=== PATIENT | male | born 1995 | race Caucasian/White ===

== ENCOUNTER 2017-07-13 11:42 | Emergency (ER) | payer OTHER, BC ==
[2017-07-13] MEDS ORDERED: Lidocaine 1% with EPINEPHrine 1:100,000 20 ML MDV INJECT ONE (12:24)
--- NOTE | 2017-07-13 12:26 | EDM.PDOC ---
ED HPI GENERAL MEDICAL PROBLEM - General Chief Complaint: Laceration Stated Complaint: LT WRIST LAC Time Seen by Provider: 07/13/17 11:56 Source of Information: Reports: Patient History Limitations: Reports: No Limitations - History of Present Illness INITIAL COMMENTS - FREE TEXT/NARRATIVE: 21 y/o M s/p injury at work. Was removing a transmission and it fell on his left wrist. Has a laceration there. Denies pain. No numbness/tingling/weakness. Denies additional injury. Mild bleeding. - Related Data Allergies Allergy/AdvReac Type Severity Reaction Status Date / Time Penicillins Allergy Rash Verified 07/13/17 11:53 Home Meds: Home Meds Albuterol Sulfate [Proair Hfa] 2 puff IH Q4H PRN 07/13/17 [History] Past Medical History - Past Health History Medical/Surgical History: Denies Medical/Surgical History Social & Family History - Tobacco Use Smoking Status *Q: Current Every Day Smoker Years of Tobacco use: 4 Packs/Tins Daily: 0.5 - Caffeine Use Caffeine Use: Reports: Coffee, Energy Drinks, Soda, Tea - Recreational Drug Use Recreational Drug Use: No ED ROS GENERAL - Review of Systems Review Of Systems: See Below Constitutional: Reports: No Symptoms Musculoskeletal: Denies: Arm Pain Skin: Reports: Wound Neurological: Denies: Paresthesia ED EXAM, SKIN/RASH Exam: See Below Exam Limited By: No Limitations General Appearance: Alert, WD/WN, No Apparent Distress Eye Exam: Bilateral Eye: Normal Inspection Head: Atraumatic, Normocephalic Neck: Normal Inspection, Supple Respiratory/Chest: No Respiratory Distress Cardiovascular: Normal Peripheral Pulses Peripheral Pulses: 2+: Radial (L) Extremities: Other (LUE: no deformity or bony TTP. Approx 2 cm laceration to palmar surface of L wrist, subcutaneous, no FB, no bleeding, distal motor/ sensation intact. +superficial very small (less than 0.5 cm) laceration to palmar suface of distal left ring finger, minimal bleeding) ED SKIN PROCEDURES - Laceration/Wound Repair Left Ventral Wrist Lac/Wound length In cm: 1.5 Appearance: Subcutaneous, Clean Distal NVT: Neuro & Vascular Intact Anesthetic Type: Local Local Anesthesia - Lidocaine (Xylocaine): 1% with EPI Local Anesthetic Volume: 2cc Skin Prep: Chlorhexidine (Hibiciens) Exploration/Debridement/Repair: Wound Explored, In a Bloodless Field, Explored to Base, No Foreign Material Found Closed with: Sutures Suture Size: 4-0 # of Sutures: 3 Suture Type: Nylon, Interrupted, Simple Sterile Dressing Applied: Nurse Tetanus Status Addressed: Yes Complications: No Course - Vital Signs Last Recorded V/S: Last Vital Signs Temp 36.4 C 07/13/17 11:51 Pulse 84 07/13/17 11:51 Resp 16 07/13/17 11:51 BP 154/94 H 07/13/17 11:51 Pulse Ox 99 07/13/17 11:51 - Orders/Labs/Meds Meds: Medications Discontinued Medications Generic Name Dose Route Start Last Admin Trade Name Freq PRN Reason Stop Dose Admin Lidocaine/Epinephrine 20 ml 07/13/17 12:24 07/13/17 12:32 Xylocaine 1% With Epinephrine 1:100,000 INJECT 07/13/17 12:25 20 ml ONETIME ONE Administration Departure - Departure Time of Disposition: 13:00 Disposition: Home, Self-Care 01 Clinical Impression: Laceration of wrist without complication Qualifiers: Encounter type: initial encounter Laterality: right Qualified Code(s): S61.511A - Laceration without foreign body of right wrist, initial encounter - Discharge Information Instructions: Laceration Care, Adult Referrals: PCP,None [Primary Care Provider] - Forms: ED Department Discharge Additional Instructions: 1. Keep wound clean and dry 2. Starting tomorrow, ok to wash gently. After washing, apply antibiotic ointment and cover wound until healed 3. Suture should be removed in 10-14 days, either by your primary doctor or walk in clinic 4. Return to the ED for a recheck if you have worsening pain, swelling, redness , or pus under the wound
== END 2017-07-13 13:00 | disposition home or self-care (01) ==
LOC: JD.ED 11:42
DX: S61.512A Laceration without foreign body of left wrist, initial encounter (principal); Z88.0 Allergy status to penicillin; W19.XXXA Unspecified fall, initial encounter
CPT/HCPCS: 12001; 99282-25; 99283-25

== ENCOUNTER 2020-09-09 10:58 | Emergency (ER) | payer OTHER, BC ==
[2020-09-09] MEDS ORDERED: Lidocaine 1% 10 ML MDV INJECT ONE (11:24)
--- NOTE | 2020-09-09 11:29 | EDM.PDOC ---
ED HPI GENERAL MEDICAL PROBLEM - General Chief Complaint: Laceration Stated Complaint: LEFT THUMB LAC Time Seen by Provider: 09/09/20 11:09 Source of Information: Reports: Patient History Limitations: Reports: No Limitations - History of Present Illness INITIAL COMMENTS - FREE TEXT/NARRATIVE: 24-year-old male presents to the emergency department complaints of laceration to his left thumb. Just prior to arrival the patient states he was working on a car repairing a bumper and it fell on his hand. He states there is a sharp edge on the bottom of the bumper that caught his thumb. He has a 1 cm laceration noted to the dorsal aspect of his proximal phalanx on his right thumb. States that his tetanus is up to date. - Related Data Allergies Allergy/AdvReac Type Severity Reaction Status Date / Time Penicillins Allergy Rash Verified 09/09/20 11:15 Home Meds: Home Meds Albuterol Sulfate [Proair Hfa] 2 puff IH Q4H PRN 07/13/17 [History] Loratadine [Claritin] 10 mg PO DAILY 09/09/20 [History] Melatonin 5 mg PO DAILYBH PRN 09/09/20 [History] Multivitamin 1 each PO DAILY 09/09/20 [History] Past Medical History - Past Health History Medical/Surgical History: Denies Medical/Surgical History - Infectious Disease History Infectious Disease History: Reports: Chicken Pox, Influenza - Past Surgical History HEENT Surgical History: Reports: Oral Surgery Social & Family History - Tobacco Use Tobacco Use Status *Q: Current Every Day Tobacco User Years of Tobacco use: 10 Packs/Tins Daily: 0.2 - Caffeine Use Caffeine Use: Reports: Coffee, Energy Drinks, Soda, Tea - Recreational Drug Use Recreational Drug Use: Yes Drug Use in Last 12 Months: No Recreational Drug Type: Reports: Marijuana/Hashish Recreational Drug Use Frequency: Not Used In Over 6 Months ED ROS GENERAL - Review of Systems Review Of Systems: Comprehensive ROS is negative, except as noted in HPI. ED EXAM, SKIN/RASH Exam: See Below Exam Limited By: No Limitations General Appearance: Alert, WD/WN, No Apparent Distress Ears: Normal External Exam, Hearing Grossly Normal Nose: Normal Inspection Throat/Mouth: Normal Inspection, Normal Lips, Normal Voice, No Airway Compromise Head: Atraumatic Neck: Normal Inspection Respiratory/Chest: No Respiratory Distress, No Accessory Muscle Use Cardiovascular: Normal Peripheral Pulses, Regular Rate, Rhythm Peripheral Pulses: 2+: Radial (L), Radial (R) GI/Abdominal: No Distention (Male) Exam: Deferred Rectal (Males) Exam: Deferred Back Exam: Normal Inspection Extremities: Normal Inspection Neurological: Alert, Oriented, Normal Cognition Psychiatric: Normal Affect, Normal Mood Skin: Warm, Dry, Intact, Normal Color, No Rash, Wound/Incision (1 cm laceration noted to dorsal aspect of the left thumb on the distal phalanx; bleeding is controlled) Location, Skin: Other (1 cm laceration noted to dorsal aspect of the left thumb on the distal phalanx) Characteristics: Other (flap) Lymphatic: No Adenopathy ED SKIN PROCEDURES - Laceration/Wound Repair Left Digit - 1st (Thumb) Appearance: Superficial Distal NVT: Neuro & Vascular Intact, No Tendon Injury Anesthetic Type: Local Local Anesthesia - Lidocaine (Xylocaine): 1% Plain Local Anesthetic Volume: 4cc Closed with: Sutures Lac/Wound length In cm: 1 Suture Size: 3-0 # of Sutures: 4 Suture Type: Nylon Course - Vital Signs Last Recorded V/S: Last Vital Signs Temp 98.4 F 09/09/20 11:13 Pulse 66 09/09/20 11:13 Resp 12 09/09/20 11:13 BP 128/61 09/09/20 11:13 Pulse Ox 97 09/09/20 11:13 - Orders/Labs/Meds Meds: Medications Discontinued Medications Generic Name Dose Route Start Last Admin Trade Name Sharan PRN Reason Stop Dose Admin Lidocaine HCl 10 ml 09/09/20 11:24 09/09/20 11:40 Lidocaine 1% 10 Ml Mdv INJECT 09/09/20 11:25 10 ml ONETIME ONE Administration Departure - Departure Time of Disposition: 11:58 Disposition: Home, Self-Care 01 Condition: Good Clinical Impression: Laceration of thumb Qualifiers: Encounter type: initial encounter Damage to nail status: without damage Foreign body presence: without foreign body Laterality: left Qualified Code(s): S61.012A - Laceration without foreign body of left thumb without damage to nail, initial encounter - Discharge Information Instructions: Laceration Care, Adult, [id number] Referrals: Swapna Vo NP [Primary Care Provider] - Forms: ED Department Discharge Additional Instructions: You were seen in the emergency department today with a laceration to your left thumb. Laceration was repaired with 4 sutures. You stated that your tetanus is up-to-date and this was not required today. Keep the wound clean and dry. Wash it twice daily with mild soap such as Dial or Zeeshan's baby shampoo and pat it dry. Then apply a thin film of bacitracin ointment to the wound. Sutures can be removed in 7 to 10 days. Watch for any signs of infection such as increased redness, warmth, swelling or drainage such as pus. You can return to the emergency department to have the sutures removed however we are busy you will likely wait for some time. You can also have the sutures removed at any of the clinics here in town. Sepsis Event Note (ED) - Evaluation Sepsis Screening Result: No Definite Risk - Focused Exam Vital Signs: Vital Signs Temp Pulse Resp BP Pulse Ox 09/09/20 11:13 98.4 F 66 12 128/61 97
== END 2020-09-09 12:15 | disposition home or self-care (01) ==
LOC: JD.ED 10:58
DX: S61.012A Laceration without foreign body of left thumb without damage to nail, initial encounter (principal); Z88.0 Allergy status to penicillin; Z72.0 Tobacco use; W20.8XXA Other cause of strike by thrown, projected or falling object, initial encounter
CPT/HCPCS: 12001; 99282; 99282-25